=== PATIENT | female | born 1985 | race Caucasian/White ===

== ENCOUNTER 2022-12-20 13:39 | Emergency (ER) | payer MEDICAID, SELFPAY ==
[2022-12-20 14:01] VITALS: BP 130/88; PULSE 83; TEMP 36.3; O2SAT 97; BMI 28.3
--- NOTE | 2022-12-20 14:37 | ED.GENADULT ---
HPI - General Adult General Time Seen by Provider: 14:37 Date Seen: 12/20/22 Chief complaint: Sore Throat Stated complaint: Ear Nose Throat pain, lots of fatigue Time Seen by Provider: 12/20/22 13:56 Source: patient Mode of arrival: ambulatory Limitations: no limitations History of Present Illness HPI narrative: Patient is a 37-year-old female who has been diagnosed some type of autoimmune disease although she does not know the exact name. She has been seen by ENT doctor and was to follow up with Rheumatology, which she has missed a couple of appointments. But has 1 scheduled within the next week. She has had some fatigue when she drives she feels like she wants to fall asleep, she has a sore throat and she feels her eyelids are puffy as well. No difficulty swallowing, no rigors chills, she has had an illness feeling over the last few months. She has been quite upset by all this, does not feel at risk to herself however at this time. She was relieved when I mentioned I would prescribe her antibiotics and steroid medication Related Data Home Medications Medication Instructions Recorded Confirmed ibuprofen 200 mg tablet (Addaprin) 200 mg PO Q4-6H PRN 12/20/22 12/20/22 Previous Rx's Medication Instructions Recorded amoxicillin 500 mg tablet 500 mg PO TID 10 days #30 tabs 12/20/22 prednisone 20 mg tablet 20 mg PO BID #10 tabs 12/20/22 Allergies Allergy/AdvReac Type Severity Reaction Status Date / Time No Known Drug Allergies Allergy Verified 09/05/22 17:10 Review of Systems Status of ROS: Reports: 6 or more systems reviewed and unremarkable except as noted in History and below [facility] Social History Smoking Status: Current every day smoker Do you use any of these nicotine containing products: None Second hand tobacco smoke exposure: No How often do you have a drink containing alcohol: monthly or less How many standard drinks containing alcohol do you have on a typical day: 1 or 2 How often do you have six or more drinks on one occasion: Never AUDIT-C Alcohol total score: 1 Non-prescribed substance use: denies use Exam Narrative: Exam Narrative: Vital signs unremarkable afebrile O2 sat 97% on room air HEENT is unremarkable other than mildly reddened throat no abscess is noted no swelling unilaterally Neck is supple Pulse regular Neurologic nonfocal good peripheral perfusion noted Const: Vital Signs, click to edit/add: Vital Signs - 24 hr 12/20/22 14:01 Temperature 97.4 F L Pulse Rate [Right Pulse Oximeter] 83 Blood Pressure [Ri ght Upper Arm] 130/88 Pulse Oximetry 97 Oxygen Delivery Me thod Room Air Course Vital Signs Vital signs: Initial Vital Signs Temperature 97.4 F L 12/20/22 14:01 Temperature Source Temporal Artery Scan 12/20/22 14:01 Pulse Rate 83 12/20/22 14:01 Pulse Rhythm 12/20/22 14:01 Blood Pressure 130/88 12/20/22 14:01 Blood Pressure Mean 102 12/20/22 14:01 Blood Pressure Position Sitting 12/20/22 14:01 Pulse Oximetry 97 12/20/22 14:01 Oxygen Delivery Method 12/20/22 14:01 Vital Signs Temperature 97.4 F L 12/20/22 14:01 Pulse Rate 83 12/20/22 14:01 Blood Pressure 130/88 12/20/22 14:01 Pulse Oximetry 97 12/20/22 14:01 Oxygen Delivery Method 12/20/22 14:01 Temperature 97.4 F L 12/20/22 14:01 Pulse Rate 83 12/20/22 14:01 Blood Pressure 130/88 12/20/22 14:01 Pulse Oximetry 97 12/20/22 14:01 Oxygen Delivery Method 12/20/22 14:01 Medical Decision Making MDM Narrative Medical decision making narrative: Patient is a 37 year white female with a history of autoimmune type disease, scheduled to see Rheumatology next week. At this point she has got a sore throat and some swelling feeling of her eyelids and throat. Will check strep, COVID/influenza/RSV. Will check a CBC and a Chem profile. Will call with results. Will give her prednisone 50 mg now and start 20 b.i.d. for 4 days starting tomorrow, amoxicillin 500 now and 500 t.i.d. for 10 days. She does have what appears to be some inflamed pharynx and I think she would benefit from antibiotic. She will discuss with her significant other and her physician her ongoing medical needs and care. She can return to ED as needed. Lab Data Labs: Lab Results 12/20/22 12/20/2212/20/23 Range/Units 14:28 14:28 14:45 WBC 11.48 H (4.50-11.00) K/uL RBC 4.12 (4.00-5.20) m/uL Hgb 11.9 L (12.0-16.0) gm/dL Hct 36.7 (33.0-51.0) % MCV 89 (80-100) fL MCH 29 (26-34) pg MCHC 32 (32-36) gm/dL RDW Coeff of Amy 13.7 (11.5-15.5) % Plt Count 296 (140-440) K/uL Neut % (Auto) 65.2 (42.0-72.0) % Lymph % (Auto) 21.3 (20-44) % [place]air % (Auto) 5.3 (0.0-11.0) % Eos % (Auto) 7.7 H (0.0-7.0) % Baso % (Auto) 0.3 (0.0-3.0) % Neut # (Auto) 7.50 H (1.7-7.0) K/uL Lymph # (Auto) 2.40 (0.90-2.90) K/uL [place] # (Auto) 0.60 (0.00-0.90) K/UL Eos # (Auto) 0.90 H (0.00-0.50) K/uL Baso # (Auto) 0.00 (0.00-0.30) K/uL Sodium (135-149) mmol/L Potassium (3.6-5.1) mmol/L Chloride (96-114) mmol/L Carbon Dioxide (20-32) mmol/L BUN (5-24) mg/dL Creatinine (0.5-1.5) mg/dL Estimated Creat Clear Estimated GFR ml/min Glucose (60-115) mg/dL Calcium (8.4-10.6) mg/dL SARS-CoV-2 (PCR) Negative SARS-CoV-2 (Negative) Influenza Type A (PCR) Negative PCR FLU A (Negative) Influenza Type B (PCR) Negative PCR FLU B (Negative) RSV (PCR) Negative PCR RSV (Negative) Group A Strep DNA DETECTED A (Not Detectd) 12/20/22 Range/Units 14:45 WBC (4.50-11.00) K/uL RBC (4.00-5.20) m/uL Hgb (12.0-16.0) gm/dL Hct (33.0-51.0) % MCV (80-100) fL MCH (26-34) pg MCHC (32-36) gm/dL RDW Coeff of Amy (11.5-15.5) % Plt Count (140-440) K/uL Neut % (Auto) (42.0-72.0) % Lymph % (Auto) (20-44) % St. Clair % (Auto) (0.0-11.0) % Eos % (Auto) (0.0-7.0) % Baso % (Auto) (0.0-3.0) % Neut # (Auto) (1.7-7.0) K/uL Lymph # (Auto) (0.90-2.90) K/uL St. Clair # (Auto) (0.00-0.90) K/UL Eos # (Auto) (0.00-0.50) K/uL Baso # (Auto) (0.00-0.30) K/uL Sodium 142 (135-149) mmol/L Potassium 4.4 (3.6-5.1) mmol/L Chloride 107 (96-114) mmol/L Carbon Dioxide 29 (20-32) mmol/L BUN 15 (5-24) mg/dL Creatinine 0.7 (0.5-1.5) mg/dL Estimated Creat Clear 79.81 Estimated GFR 115 ml/min Glucose 128 H (60-115) mg/dL Calcium 8.9 (8.4-10.6) mg/dL SARS-CoV-2 (PCR) (Negative) Influenza Type A (PCR) (Negative) Influenza Type B (PCR) (Negative) RSV (PCR) (Negative) Group A Strep DNA (Not Detectd) Discharge Plan Discharge Clinical Impression: Pharyngitis Patient Disposition: Home w/ Parent or Adult Condition: Stable Additional Instructions: Rest, light activity, Tylenol amoxicillin and prednisone for the sore throat. Will call back with the results of your test today. Follow-up with rheumatology as planned. Update your regular doctor the next couple of days. Rest light activity, have somebody drive you if your feeling fatigued. Activity Level: Light activity Discharge Diet: Regular Prescriptions: New prednisone 20 mg tablet 20 mg PO BID Qty: 10 0RF amoxicillin 500 mg tablet 500 mg PO TID 10 Days Qty: 30 0RF No Action ibuprofen [Addaprin] 200 mg tablet 200 mg PO Q4-6H PRN Follow Up/Referrals: Provider,Not a Local [Primary Care Provider] - Stand Alone Forms: [employer] Info Instructions Discharge Comment: Pt took her abx and prednisone before leaving to picking up prescriptions.
[2022-12-20 14:51] LABS: Basophils Percent Auto 0.3 % (0.0-3.0); Eosinophils Percent Auto 7.7 % (0.0-7.0); Hematocrit 36.7 % (33.0-51.0); Hemoglobin* 11.9 gm/dL (12.0-16.0); Immature Granulocytes Pct Auto 0.2 %; Lymphocytes Percent Auto 21.3 % (20-44); Mean Corpuscular HGB Conc 32 gm/dL (32-36); Mean Corpuscular Hemoglobin 29 pg (26-34); Mean Corpuscular Volume 89 fL (80-100); Monocytes Percent Auto 5.3 % (0.0-11.0); Neutrophils Percent Auto 65.2 % (42.0-72.0); Platelet Count* 296 K/uL (140-440); RDW Coefficient of Variation % 13.7 % (11.5-15.5); Red Blood Count 4.12 m/uL (4.00-5.20); White Blood Count* 11.48 K/uL (4.50-11.00)
[2022-12-20 14:59] LABS: Slide Review Reflex No
[2022-12-20 15:07] LABS: Chloride* 107 mmol/L (96-114); Sodium* 142 mmol/L (135-149)
[2022-12-20 15:10] LABS: Blood Urea Nitrogen* 15 mg/dL (5-24); Carbon Dioxide* 29 mmol/L (20-32); Creatinine* 0.7 mg/dL (0.5-1.5); Est. Creatinine Clearance* 79.81; Estimated Glomerular Filt Rate 115 ml/min; Glucose* 128 mg/dL (60-115)
[2022-12-20 15:11] LABS: Calcium* 8.9 mg/dL (8.4-10.6)
[2022-12-20 15:19] LABS: Potassium* 4.4 mmol/L (3.6-5.1)
[2022-12-20 15:35] LABS: PCR FLU A Negative PCR FLU A (Negative); PCR FLU B Negative PCR FLU B (Negative); PCR RSV Negative PCR RSV (Negative)
[2022-12-20 15:36] LABS: SARS PCR* Negative SARS-CoV-2 (Negative)
[2022-12-20 15:53] LABS: Strep A DNA Probe* DETECTED (Not Detectd)
--- NOTE | 2022-12-20 16:08 | ED.NURSE ---
Called pt with results of her bloodwork and her positive Strep test. Pt has picked up all her prescriptions and will return if she is not feeling better after taking her course of antibiotics.
== END 2022-12-20 14:54 | disposition home or self-care (01) ==
PROVIDERS: Emergency Provider Family Medicine
DX: J02.9 Acute pharyngitis, unspecified (principal)
CPT/HCPCS: 36415; 80048; 85025; 87502; 87634; 87635; 87651; 99282; 99283; 99284

== ENCOUNTER 2024-05-17 10:41 | Emergency (ER) | payer MEDICAID, SELFPAY ==
[2024-05-17 10:44] VITALS: BP 130/90; PULSE 64; RESP 16; TEMP 36.4; O2SAT 97; BMI 52.2
--- NOTE | 2024-05-17 11:07 | ED.ANIMALBIT ---
HPI - Animal Bite General Chief Complaint: Animal Bite Stated Complaint: dog bite - 0600 Time Seen by Provider: 05/17/24 10:48 History of Present Illness HPI narrative: This 39-year-old female comes in with injury to her left middle finger from her dog who bit her this morning at about 6:00 a.m., 5 hours prior to arrival. She comes in wanting to have reassurance that there is not an infection happening. She is uncertain of her tetanus status. Related Data Home Medications ?Medication ?Instructions ?Recorded ?Confirmed ibuprofen 200 mg tablet (Addaprin) 200 mg PO Q4-6H PRN 12/20/22 12/20/22 avacopan 10 mg capsule (Tavneos) mg PO 05/17/24 folic acid 1 mg tablet 1 mg PO DAILY 05/17/24 05/17/24 methotrexate sodium 2.5 mg tablet 15 mg PO 05/17/24 Previous Rx's ?Medication ?Instructions ?Recorded amoxicillin 500 mg tablet 500 mg PO TID 10 days #30 tabs 12/20/22 prednisone 20 mg tablet 20 mg PO BID #10 tabs 12/20/22 Allergies Allergy/AdvReac Type Severity Reaction Status Date / Time naloxone Allergy Severe tonuge Verified 05/17/24 10:53 [From [facility] Naloxone] swelling Review of Systems Status of ROS: Reports: 10 or more systems reviewed and unremarkable except as noted in History and below Narrative: Constitutional: No fevers, no weight gain or loss. Eyes: No discharge. No vision changes. HENT: No congestion, no sore throat, no ear pain. Cardiovascular: No chest pain, no palpitations. Respiratory: No shortness of breath, no wheezes, no cough. Gastrointestinal: No abdominal pain, no vomiting, no diarrhea. Genitourinary: No dysuria, no hematuria. Musculoskeletal: Normal range of motion. Skin: No rashes, no pruritis. Neurological: No dizziness, weakness, sensory change, speech change. Endo/Heme/Allergies: No bruising or bleeding. No polydipsia. Pysch: no suicidality, no anxiety, no insomnia. All other systems reviewed and are negative. [facility] Social History Smoking Status: Current every day smoker Do you use any of these nicotine containing products: None Second hand tobacco smoke exposure: No How often do you have a drink containing alcohol: monthly or less How many standard drinks containing alcohol do you have on a typical day: 1 or 2 How often do you have six or more drinks on one occasion: Never AUDIT-C Alcohol total score: 1 Non-prescribed substance use: denies use Exam Narrative: Exam Narrative: Constitutional: Well-developed, well-nourished, no acute distress. HEENT: Normocephalic, atraumatic. Neck: Normal range of motion. Nontender. Supple. Heart: Intact distal pulses. Lungs: No chest discomfort. No wheezes, rhonchi, or rales. Abdomen: Nontender. Back: Normal range of motion. Extremities: Normal range of motion. For small superficial puncture type wounds to the left middle finger. Range of motion is intact. Mild swelling but no sign of drainage, bleeding, or erythema. Skin: Intact. No rash. Warm. No erythema or pallor. Neurologic: No altered sensation. No weakness. Alert and oriented. Psychiatric: No suicidality. No anxiety or depression. No insomnia. Nursing notes and vitals signs are reviewed. Const: Vital Signs, click to edit/add: Vital Signs - 24 hr 05/17/24 10:44 Temperature 97.5 F L Pulse Rate [Pulse Oximeter] 64 Respiratory Rate 16 Blood Pressure [Ri ght Upper Arm] 130/90 H Pulse Oximetry 97 Oxygen Delivery Me thod Room Air Course Vital Signs Vital signs: Initial Vital Signs Temperature 97.5 F L 05/17/24 10:44 Temperature Source Temporal Artery Scan 05/17/24 10:44 Pulse Rate 64 05/17/24 10:44 Respiratory Rate 16 05/17/24 10:44 Blood Pressure 130/90 H 05/17/24 10:44 Blood Pressure Mean 103 05/17/24 10:44 Blood Pressure Position Sitting 05/17/24 10:44 Pulse Oximetry 97 05/17/24 10:44 Oxygen Delivery Method Room Air 05/17/24 10:44 Vital Signs Temperature 97.5 F L 05/17/24 10:44 Pulse Rate 64 05/17/24 10:44 Respiratory Rate 16 05/17/24 10:44 Blood Pressure 130/90 H 05/17/24 10:44 Pulse Oximetry 97 05/17/24 10:44 Oxygen Delivery Method Room Air 05/17/24 10:44 Temperature 97.5 F L 05/17/24 10:44 Pulse Rate 64 05/17/24 10:44 Respiratory Rate 16 05/17/24 10:44 Blood Pressure 130/90 H 05/17/24 10:44 Pulse Oximetry 97 05/17/24 10:44 Oxygen Delivery Method Room Air 05/17/24 10:44 MDM - Animal Bite MDM Narrative Medical decision making narrative: This patient has superficial wounds to her left middle finger that do not need repair. Additionally the injury is not 1 that would require antibiotic treatment at this time. The patient states that it was her dog that bit her and the dog's vaccinations are up-to-date. Her tetanus vaccination is not up-to-date so she did receive an updated vaccination today. I did describe signs and symptoms that would be more suspicious for an infection related to this dog bite. She should return if worsening symptoms happen. Discharge Plan Discharge Clinical Impression: Dog bite Patient Disposition: Home, Self-Care Condition: Stable Additional Instructions: Use [id number] medicines as needed and directed. Follow up with MD return if worsening. Prescriptions: No Action ibuprofen [Addaprin] 200 mg tablet 200 mg PO Q4-6H PRN prednisone 20 mg tablet 20 mg PO BID Qty: 10 0RF amoxicillin 500 mg tablet 500 mg PO TID 10 Days Qty: 30 0RF methotrexate sodium 2.5 mg tablet 15 mg PO folic acid 1 mg tablet 1 mg PO DAILY Tavneos 10 mg capsule PO Follow Up/Referrals: Provider,Not a Local [Primary Care Provider] - Stand Alone Forms: [employer] Info Instructions
[2024-05-17] MEDS: TETANUS/DIPHTH/PERTUSSIS 0.5 ML SYRINGE IM (11:11)
--- OUTSIDE RECORDS SUMMARY | 2024-05-17 11:19 | XMS_ITS | Patient Health Record ---
Author Organization [email or web address] [facility] Address [address] [place] [address] Care Team Providers Care Radiological Defense Officer Name Role Phone Nick Garcia Primary Care Provider Allergies No Known Allergies Results Component Value Reference Range Notes Alkaline Phosphatase Reviewed date:05/08/2024 03:35:34 PM Interpretation:Stable Performing Lab: Notes/Report: Testing performed at [facility], [address] [place] [address], Supervisor Costuming Kedar Merida MD, CLIA# [id number] ALT Reviewed date:05/08/2024 03:35:34 PM Interpretation:Stable Performing Lab: Notes/Report: Testing performed at [email or web address], [address] [place] [address], Supervisor Costuming Kedar Merida MD, CLIA# [id number] AST Reviewed date:05/08/2024 03:35:34 PM Interpretation:Stable Performing Lab: Notes/Report: Testing performed at [facility], [address] [place] [address], Supervisor Costuming Kedar Merida MD, CLIA# [id number] Creatinine Reviewed date:05/08/2024 03:35:34 PM Interpretation:Stable Performing Lab: Notes/Report: Testing performed at [facility], [address] [place] [address], Supervisor Costuming Kedar Merida MD, CLIA# [id number] CBC Reviewed date:05/08/2024 03:35:34 PM Interpretation:Stable Performing Lab: Notes/Report: Testing performed at [email or web address], [address] [place] [address], Supervisor Costuming Kedar Merida MD, CLIA# [id number] Sed Rate Reviewed date:05/08/2024 03:35:34 PM Interpretation:Stable Performing Lab: Notes/Report: Testing performed at [facility], [address] [place] [address], Supervisor Costuming Kedar Merida MD, CLIA# [id number] C Reactive Protein Reviewed date:05/08/2024 03:21:16 PM Interpretation: Performing Lab: Notes/Report: Testing performed at [facility], [address] [place] [address], Supervisor Costuming Kedar Merida MD, CLIA# [id number] C Reactive Protein Reviewed date:01/25/2024 12:10:06 PM Interpretation: Performing Lab: Notes/Report: Testing performed at [facility], [address] [place] [address], Supervisor Costuming Kedar Merida MD, CLIA# [id number] Sed Rate Reviewed date:02/08/2024 02:50:27 PM Interpretation:UTRYL High Performing Lab: Notes/Report: Testing performed at [facility], [address] [place] [address], Supervisor Costuming Kedar Merida MD, CLIA# [id number] CBC Reviewed date:02/08/2024 02:50:27 PM Interpretation:UTYRL High Performing Lab: Notes/Report: Testing performed at [facility], [address] [place] [address], Supervisor Costuming Kedar Merida MD, CLIA# [id number] Creatinine Reviewed date:02/08/2024 02:50:27 PM Interpretation:UTRYL High Performing Lab: Notes/Report: Testing performed at [facility], [address] [place] [address], Supervisor Costuming Kedar Merida MD, CLIA# [id number] AST Reviewed date:02/08/2024 02:50:27 PM Interpretation:UTRYL High Performing Lab: Notes/Report: Testing performed at [facility], [address] [place] [address], Supervisor Costuming Kedar Merida MD, CLIA# [id number] ALT Reviewed date:02/08/2024 02:50:27 PM Interpretation:YAMILETH Performing Lab: Notes/Report: Testing performed at [facility], [address] [place] [address], Supervisor Costuming Kedar Merida MD, CLIA# [id number] Alkaline Phosphatase Reviewed date:02/08/2024 02:50:27 PM Interpretation:YAMILETH High Performing Lab: Notes/Report: Testing performed at [facility], [address] [place] [address], Supervisor Costuming Kedar Merida MD, CLIA# [id number] Reason For Referral No Information Medications Medication SIG (Take, Route, Fr equency, Duration) Notes Start Date End Date Status Ibuprofen 200 MG 4 tablets with food or milk as needed Orally Three- five times a day Active Folic Acid 1 MG 1 tablet Orally Once a day Active Methotrexate 2.5 MG take 6 tablets once weekly Orally 04/04/2023 Active Tavneos 10 MG Take 3 capsules (30 mg) by mouth twice daily with food. 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 Problem History of cocaine abuse (385707061593670) History of cocaine abuse (F14.11) Active confirmed Vital Signs Heart Rate 88 /min 01/19/2024 NO Blood pressure diastolic 100 mm Hg 05/03/2024 Height 58 in 05/03/2024 Blood pressure systolic 118 mm Hg 05/03/2024 Weight 220 lbs 01/19/2024 NO BMI 45.98 kg/m2 01/19/2024 NO Encounters Encounter Location Date Provider Diagnosis [address] [place] [id number] 05/19/[address] [place] [address] 05/19/[address] [place] [address] 06/06/2023 [facility] [address] [place] [address] 06/22/2023 [facility] [address] [place] [address] 08/02/2023 Nick Garcia Vasculitis I77.[address] [place] [address] 08/29/2023 [facility] [address] [address] 08/31/2023 [facility] [address] [place] [address] 10/27/2023 [facility] [address] [place] [address] 01/24/2024 [facility] [address] [place] [address] 01/27/2024 [facility] [address] [place] [address] 04/11/2024 [facility] [place] [address] [place] [address] 05/19/2023 Nick Garcia Vasculitis I77.6 and Teresa's granulomatosis M31.30 [facility] [place] [address] [place] [address] 01/19/2024 Nick Garcia Teresa's granulomat osis M31.30 and buttermaker use of drug Z79.899 [facility] [place] [address] [place] [address] 05/03/2024 Nick Garcia Vasculitis I77.6 ; Teresa's granulomatosis M31.30 and jail use of drug Z79.899 Assessments Encounter Date Diagnosis (ICD Code) Assessment Notes Treat ment Notes Treatment Clinical Notes 05/19/2023 Vasculitis (ICD-10 - I77.6) 08/02/2023 Vasculitis (ICD-10 - I77.6) 05/03/2024 Vasculitis (ICD-10 - I77.6) 01/19/2024 Teresa's granulomatosis (ICD-10 - M31.30) 05/03/2024 Teresa's granulomatosis (ICD-10 - M31.30) 01/19/2024 buttermaker use of john g (ICD-10 - Z79.899) 05/19/2023 Teresa's granulomatosis (ICD-10 - M31.30) 05/03/2024 jail use of john g (ICD-10 - Z79.899) Plan Of Treatment No Information Insurance Providers Payer Name Payer Address Payer Phone Subscriber Number Group Number Insured Name Patient Relationship to Insured Coverage Start Date Coverage End Date [facility] [address] [place], [place] [id number] Karyna Parisi Self - patient is the insured 3
--- OUTSIDE RECORDS SUMMARY | 2024-05-17 11:19 | XMS_ITS | Referral Summary ---
Author Organization [facility] Address [address] [place] [address] Care Team Providers Care Handle Rounder Operator Name Role Phone No Ref-Primary, Physician Primary Care Provider Palmira Gay MD Unavailable [phone] Palmira Gay MD Unavailable [phone] Camila Treviño MD Unavailable [phone] Allergies No known active allergies Medications Medication Sig Dispensed Refills Start Date End Date Status Avacopan (TAVNEOS) 10 MG CAPS Take 1 capsule by mouth 2 times daily Active predniSONE (DELTASONE) 10 MG tablet Take 20 mg by mouth daily 04/04/2023 Active methotrexate 2.5 MG tablet Take 15 mg by mouth every 7 days On Tuesdays04/04/2023 Active hydrOXYzine (ATARAX) 25 MG tabletIndications:An xiety Take 1 tablet (25 mg) by mouth every 6 hours as needed for anxiety 20 tablet 05/24/2023 Active cloNIDine (CATAPRES-TTS2) 0.2 MG/24HR WK patchIndications:Sev ere opioid use disorder (H) Place 1 patch onto the skin once a week 1 patch 05/29/2023 Active Active Problems Problem Noted Date Diagnosed Date Vasculitis (H24) 07/29/2023 Cocaine abuse 07/29/2023 Nasal septal perforation 07/29/2023 Disorder of palate 07/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 Opioid use disorder 07/29/2023 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 Intractable pain 05/19/2023 Dysphagia, unspecified type 05/19/2023 Lesion of soft palate 05/19/2023 Granulomatosis with polyangiitis 05/19/2023 05/19/2023 History of cocaine abuse 05/19/2023 023 ANCA-positive vasculitis 12/31/2022 023 Anxiety 09/08/2018 05/19/2023 Depression 09/08/2018 05/19/2023 Social History Tobacco Use Types Packs/Day Years Used Date Smoking Tobacco: Every Day Cigarettes Tobacco Cessation:Ready to Q uit: Not Asked; Counseling Given: Not Answered Adolescent Education Answer Date Record ed Getting School Help Needed Not on file 09/14 Sex and Gender Information Value Date Recorded Sex Assigned at Not on file Gender Identity Not on file Sexual Orientation Not on file Last Filed Vital Signs Vital Sign Reading Time Taken Comments Blood Pressure 140/89 12/19/2023 2:59 PM MEDICAL SPECIALIST Pulse 111 12/19/2023 2:59 PM MEDICAL SPECIALIST Temperature 36.6 ??C (97.8 ??F) 07/30/2023 12:48 AM C DT Respiratory Rate 18 07/29/2023 8:51 PM CDT Oxygen Saturation 96% 07/30/2023 12:48 AM CDT Inhaled Oxygen Concentration - - Weight 99.8 kg (220 lb) 07/28/2023 8:32 PM CDT Height 147.3 cm (4' 10) 07/28/2023 8:32 PM CDT Body Mass Index 45.98 07/28/2023 8:32 PM CDT Plan of Treatment Upcoming Encounters Date Type Department Care Team (Late st Contact Info) Description 06/20/2024 PRE VISIT [facility] [address] [address] Sravan Smalls MD [address] [place] [id number] Previsit 06/20/2024 2:00 PM CDT Office Visit [facility] [address] [phone] Sravan Smalls MD [address] [place] [address] [phone] Procedures Procedure Name Priority Date/Time Associated Diagnosis Comments BASIC METABOLIC PANEL STAT 07/29/2023 7:28 AM CDT HIV ANTIGEN ANTIBODY COMBO STAT 05/20/2023 7:09 AM CDT HEPATITIS C ANTIBODY STAT 05/20/2023 7:09 AM CDT from Last 3 Months or Most Recently Relevant to Health Maintenance Results * Basic metabolic panel (07/29/2023 7:28 AM CDT) Sodium 139 136 - 145 mmol/L 07/29/2023 8:06 AM CDT [facility] Potassium 4.2 3.4 - 5.3 mmol/L 07/29/2023 8:06 AM CDT [facility] Chloride 103 98 - 107 mmol/L 07/29/2023 8:06 AM CDT [facility] Carbon Dioxide (CO2) 24 22 - 29 mmol/L 07/29/2023 8:06 AM CDT [facility] Anion Gap 12 7 - 15 mmol/L 07/29/2023 8:06 AM CDT [facility] Urea Nitrogen 16.8 6.0 - 20.0 mg/dL 07/29/2023 8:06 AM CDT [facility] Creatinine 0.88 0.51 - 0.95 mg/dL 07/29/2023 8:06 AM CDT [facility] Calcium 8.6 8.6 - 10.0 mg/dL 07/29/2023 8:06 AM CDT [facility] Glucose 95 70 - 99 mg/dL 07/29/2023 8:06 AM CDT [facility] GFR Estimate 86 >60 mL/min/1.7 3m2 07/29/2023 8:06 AM CDT [facility] Blood STRUCTURE OF LEFT HAND / Unknown Venipuncture / Unknown 07/29/2023 7:28 AM CDT 07/29/2023 7:39 AM CDT Amanda Mcfarland DO LAB - BLOOD ORDERABL ES [facility] [place] [facility] [address] [facility], [address] [place] [id number], [facility] [phone] * HIV Antigen Antibody Combo (05/20/2023 7:09 AM CDT) HIV Antigen Antibody Combo Nonreactive Nonreactive 05/20/2023 1:09 PM CDT [facility] DO Comment:HIV-1 p24 Ag & HIV-1 /HIV-2 Ab Not Detected Blood STRUCTURE OF RIGHT HAND / Unknown Venipuncture / Unknown 05/20/2023 7:09 AM CDT 05/20/2023 7:17 AM CDT Marcelo Grove MD LAB - BLOOD ORDJaney MASC[facility]RO [facility] [address] [facility], Room [address] [phone] * Hepatitis C antibody (05/20/2023 7:09 AM CDT) Hepatitis C Antibody Nonreactive Nonreactive 05/20/2023 1:09 PM CDT SPECIALTY CORE/PROT/EN DO Blood STRUCTURE OF RIGHT HAND / Unknown Venipuncture / Unknown 05/20/2023 7:09 AM CDT 05/20/2023 7:17 AM CDT Narrative [facility] - 05/20/2023 1:09 PM CDT Assay performance characteristics have not been established for newborns, infants, and children. Marcelo Grove MD LAB - BLOOD ROD [facility]Endo [address] [facility], [address] [place] [address] from Last 3 Months or Most Recently Relevant to Health Maintenance Advance Directives For more information, please contact: [phone] * Full Code (Latest Code Status on File) Date Activated Date Inactivated Comments 07/29/2023 3:57 AM 07/30/2023 5:10 PM All basic and advanced life-sustaining interventions are performed as appropriate Question Answer Comments Code status determined by: Discussion with patie nt/ legal decision maker * Full Code Date Activated Date Inactivated Comments 05/19/2023 7:00 PM 05/24/2023 6:14 PM All basic an d advanced life-sustaining interventions are performed as appropriate Question Answer Comments Code status determined by: Discussion with patie nt/ legal decision maker Care Teams Handle Rounder Operator Relationship Specialty Start Date End Date No Ref-Primary, Physician PCP - General 05/19/23 Palmira Gay MD [address] [facility] [address] [place] [address] Otolaryngology 05/26/23 Palmira Gay MD [address] [facility] [address] [place] [address] Otolaryngology 06/24/23 Camila Treviño MD [facility] [address], [address] [place] [address] Assigned Surgical Provider 12/22/23
--- OUTSIDE RECORDS SUMMARY | 2024-05-17 11:19 | XMS_ITS | Clinical Summary ---
Author Organization [facility] Address [place], [place] [address] Care Team Providers Care Office Specialist Name Role Phone [employer] [facility] Primary Care Provider Allergies No known active allergies Medications Medication Sig Dispensed Refills Start Date End Date Status mupirocin (BACTROBAN OINTMENT) ointmentIndications:N dana septal perforation,Nasal congestion,Chronic pansinusitis,ANCA-pos itive vasculitis (HC) Put a pea sized amount in your sinus rinse kit and irrigate 2-3 times daily 15 g 3 11/04/2022 Active traZODone (DESYREL) 50 mg tablet Take 50 mg by mouth. Active sertraline (ZOLOFT) 50 mg tablet Take 50 mg by mouth once daily. 09/06/2023 Active prazosin (MINIPRESS) 1 mg capsule 08/09/2023 Active hydrOXYzine HCL (ATARAX) 25 mg tablet Take 25 mg by mouth. 05/24/2023 Active cloNIDine HCL (CATAPRES) 0.1 mg tablet 08/02/2023 Active methotrexate (RHEUMATREX) 2.5 mg tablet Take 15 mg by mouth. 04/04/2023 Active Active Problems Problem Noted Date Diagnosed Date Opioid use disorder 07/29/2023 Nasal septal perforation 07/29/2023 Cocaine substance abuse 07/29/2023 History of cocaine abuse 05/19/2023 Disorder of palate 05/19/2023 Dysphagia 05/19/2023 Granulomatosis with polyangiitis 12/31/2022 Polysubstance abuse 09/08/2018 Opiate withdrawal 09/08/2018 Depression 09/08/2018 Anxiety 09/08/2018 Tobacco use 09/08/2018 Immunizations Name Administration Dates Next Due COVID-19 vaccine (CASTT-Bio NTech 30mcg/0.3mL) 12YO+ PAZ-SUCROSE PF, MDV 02/28/2023 Influenza, IIV3 (Age 6-35 mos) 09/03/2009 Influenza, IIV3 (Age >=3 years) 08/09/2012,08/11 Influenza, IIV4 02/28/2023 Influenza, IIV4 (=>6mos) MDV 07/30/2015 Pneumococcal Conj 20-valent (Prevnar 20) 023 Tdap 03/24/2011 Zoster (Shingrix-RZV, recombinant) 02/28/2023 Family History Medical History Relation Name Comments Good Health Father Cancer-prostate Maternal Grandfather Diabetes Mother Relation Name Status Comments Father Maternal Grandfather Mother Social History Tobacco Use Types Packs/Day Years Used Date Smoking Tobacco: Every Day Cigarettes 1 16 Smokeless Tobacco: Never Tobacco Cessation:Ready to Q uit: No; Counseling Given: Yes Alcohol Use Standard Drinks/Week Comments Yes 0 (1 standard drink = 0.6 oz pur e alcohol) once a year PHQ-2 Answer Date Recorded PHQ-2 Score 4 01/28/2019 Social Connections Answer Date Recorded Frequency of Communication with Friends and Fami ly Not on file 10/11/2023 Financial Resource Strain Answer Date R ecorded Difficulty of Paying Living Expenses 2 10/08/2022 Difficulty of Paying Living Expenses 1 10/08/2022 Food Insecurity Answer Date Recorded Worried About Running Out of Food in the Last Ye ar 1 10/08/2022 Transportation Needs Answer Date Record ed Lack of Transportation (Medical) 1 10/08/2022 Housing Stability Answer Date Recorded Unable to Pay for Housing in the Last Year 1 10/08/2022 Sex and Gender Information Value Date Recorded Sex Assigned at Not on file Gender Identity Not on file Sexual Orientation Not on file Obstetrics History Para Term AB IAB SAB Ectopic Multiple Livin g Live Births 1 0 0 0 0 0 0 0 0 0 Date Outcome GA Total Labor Labor/2nd/3rd Weight Sex Type Anes PTL Amy A1 A5 Name Clin Comments:System Genera suha. Please review and update details. Last Filed Vital Signs Vital Sign Reading Time Taken Comments Blood Pressure 116/83 12/31/2022 11:32 AM AVIATION TECHNICIAN AIRCRAFT Pulse 82 12/31/2022 11:32 AM AVIATION TECHNICIAN AIRCRAFT Temperature 36 ??C (96.8 ??F) 12/30/2022 2:16 PM AVIATION TECHNICIAN AIRCRAFT Respiratory Rate 21 12/30/2022 2:16 PM AVIATION TECHNICIAN AIRCRAFT Oxygen Saturation 99% 12/31/2022 11:32 AM AVIATION TECHNICIAN AIRCRAFT Inhaled Oxygen Concentration - - Weight 83.9 kg (185 lb) 12/31/2022 11:32 AM AVIATION TECHNICIAN AIRCRAFT Height 147.3 cm (4' 10) 12/30/2022 2:16 PM AVIATION TECHNICIAN AIRCRAFT Body Mass Index 38.67 12/30/2022 2:16 PM AVIATION TECHNICIAN AIRCRAFT Plan of Treatment Health Maintenance Due Date Last Done Comments HIV for age 15-65 2001 Hepatitis C screening for ag e 18-79 2004 Pap test for age 21-65 2007 BMI (ht and wt on same day) for age 18+ 03/03/2017 03/03/2016 Depression screening for age 12+ 09/11/2019 09/11/20 18, 03/03/2016 Tetanus booster 03/24/2021 03/24/2011 COVID-19 vaccine series (2 - Pfizer risk series) 03/21/2023 02/28/2023 Influenza for age 9-49 07/29/2024 3, 07/30/2015, 08/09/2012, Additional history exists Tdap Completed 03/24/2011 Pneumococcal series for age 6-64 Completed 02/29/20 23 Advance Directives * Full Code (Latest Code Status on File) Date Activated Date Inactivated Comments 09/11/2018 5:56 PM 09/29/2018 3:42 PM * Full Code Date Activated Date Inactivated Comments 09/08/2018 2:39 PM 09/11/2018 5:45 PM * Full Code Date Activated Date Inactivated Comments 07/19/2009 1:20 AM 07/20/2009 4:23 PM * Full Code Date Activated Date Inactivated Comments 07/18/2009 7:47 AM 07/19/2009 1:14 AM * Full Code Date Activated Date Inactivated Comments 03/31/2009 6:33 PM 04/01/2009 12:13 AM Care Teams Office Specialist Relationship Specialty Start Date End Date [address] [address] PCP - General 11/28/17
--- OUTSIDE RECORDS SUMMARY | 2024-05-17 11:19 | XMS_ITS | Encounter Summary ---
Author Organization [facility] Address [address] [place] [address] Care Team Providers Care Hand Gluer And Slicer Name Role Phone No Ref-Primary, Physician Primary Care Provider Palmira Gay MD Unavailable [phone] Palmira Gay MD Unavailable [phone] Camila Treviño MD Unavailable [phone] Encounter Details Date Type Department Care Team (Late st Contact Info) Description 06/12/2023 MyC Medical Advice Initial Department [facility] Social History Tobacco Use Types Packs/Day Years Used Date Smoking Tobacco: Never Assessed Sex and Gender Information Value Date Recorded Sex Assigned at Not on file Gender Identity Not on file Sexual Orientation Not on file COVID-19 Exposure Response Date Recorded In the last 10 days, have yo u been in contact with someone who was confirmed or suspected to have Coronavirus/COVID-19? No / Unsure 05/19/2023 11:20 AM CDT documented as of this encounter Plan of Treatment Upcoming Encounters Date Type Department Care Team (Late st Contact Info) Description 06/20/2024 PRE VISIT [facility] [address] [phone] Sravan Smalls MD [address] [place] [phone] Previsit 06/20/2024 2:00 PM CDT Office Visit [facility] [address] [phone] Sravan Smalls MD [address] [place], [place] [phone] documented as of this encounter Visit Diagnoses Not on filedocumented in this encounter Care Teams Hand Gluer And Slicer Relationship Specialty Start Date End Date No Ref-Primary, Physician PCP - General 05/19/23 Palmira Gay MD [address] [place] [address] Otolaryngology 05/26/23 Palmira Gay MD [address] [address] Otolaryngology 06/24/23 Camila Treviño MD [facility] [address], [address] [place] [address] Assigned Surgical Provider 12/22/23 documented as of this encounter
--- OUTSIDE RECORDS SUMMARY | 2024-05-17 11:19 | XMS_ITS ---
Author Organization [facility] Address [address] [place] [address] Care Team Providers Care Cath Laboratory Technician Name Role Phone Unavailable Unavailable Unavailable Surgery Details Not on file Complications Check Surgery Details section. Procedure Estimated Blood Loss Check Surgery Details section. Procedure Findings Check Surgery Details section. Procedure Specimens Taken Check Surgery Details section.
--- OUTSIDE RECORDS SUMMARY | 2024-05-17 11:19 | XMS_ITS | Clinical Summary ---
Author Organization [facility] Address [address] [place] [address] Care Team Providers Care Lard Renderer Name Role Phone No Ref-Primary, Physician Primary Care Provider Palmira Gay MD Unavailable [phone] Palmira Gay MD Unavailable [phone] Camila Treviño MD Unavailable [phone] Allergies No known active allergies Medications [...] Comments Blood Pressure 140/89 12/19/2023 2:59 PM EDUCATIONAL TECHNOLOGY SPECIALIST Pulse 111 12/19/2023 2:59 PM EDUCATIONAL TECHNOLOGY SPECIALIST Temperature 36.6 ??C (97.8 ??F) 07/30/2023 [...] st Contact Info) Description 06/20/2024 PRE VISIT [facility] [address] [phone] Sravan Smalls MD [address] [place] [phone] Previsit 06/20/2024 2:00 PM CDT Office Visit [facility] [address] [phone] Sravan Smalls MD [address] [place] [address] [phone] Health Maintenance Due Date Last Done Comments ADVANCE CARE PLANNING 1986 ANNUAL REVIEW OF HM ORDERS 1986 NICOTINE/TOBACCO CESSATION COUNSELING Q 1 YR 1986 YEARLY PREVENTIVE VISIT 1986 HEPATITIS A IMMUNIZATION (1 of 2 - Risk 2-dose series) 2005 HEPATITIS B IMMUNIZATION (1 of 3 - 19+ 3-dose series) 2005 PAP 2007 DTAP/TDAP/TD IMMUNIZATION (2 - Td or Tdap) 03/24/2021 03/24/2011 COVID-19 Vaccine (2 - Pfizer risk series) 03/21/2023 02/28/2023 PHQ-2 (once per calendar year) 2023 INFLUENZA VACCINE (Season Ended) 2024 02/28/2023, 07/30/2015, 08/09/2012, Additional history exists GLUCOSE 07/29/2026 07/29/2023, 06/30, 05/24/2023, Additional history exists Pneumococcal Vaccine: Pediatrics (0 to 5 Years) and At-Risk Patients (6 to 64 Years) Completed 02/28/2023 HEPATITIS C SCREENING Completed 05/20/2023 HIV SCREENING Completed 05/20/2023 HPV IMMUNIZATION Aged Out No longer e ligible based on patient's age to complete this topic IPV IMMUNIZATION Aged Out No longer e ligible based on patient's age to complete this topic MENINGITIS IMMUNIZATION Aged Out No l onger eligible based on patient's age to complete this topic RSV MONOCLONAL ANTIBODY Aged Out No l onger eligible based on patient's age to complete this topic Procedures Procedure Name Priority Date/Time Associated Diagnosis [...] LAB - BLOOD ORDERABL ES [facility] [place] [facility] [address] [facility], [address] [address], [facility] [phone] * HIV Antigen Antibody Combo (05/20/2023 7:09 AM CDT) HIV Antigen Antibody Combo Nonreactive Nonreactive 05/20/2023 1:09 PM CDT [facility] C[facility]PROT/EN DO Comment:HIV-1 p24 Ag & HIV-1 /HIV-2 Ab Not Detected Blood STRUCTURE OF RIGHT HAND / Unknown Venipuncture / Unknown 05/20/2023 7:09 AM CDT 05/20/2023 7:17 AM CDT Marcelo Grove MD LAB - BLOOD ORDJaney MASCORRO [facility]Prot/Endo 500 [facility], [address] [phone] * Hepatitis C antibody (05/20/2023 7:09 AM CDT) Hepatitis C Antibody Nonreactive Nonreactive 05/20/2023 1:09 PM CDT [facility] DO Blood STRUCTURE OF RIGHT HAND / Unknown Venipuncture / Unknown 05/20/2023 7:09 AM CDT 05/20/2023 7:17 AM CDT Narrative [facility] - 05/20/2023 1:09 PM CDT Assay performance characteristics have not been established for newborns, infants, and children. Marcelo Grove MD LAB - BLOOD ORDJaney MASCORRO [facility]ENDO Special[facility] Core/Prot/Endo [address] [facility], [address] [phone] from Last 3 Months or Most Recently Relevant to Health Maintenance Advance Directives For more information, please contact: [phone] * Full Code (Latest Code Status on [...] Comments Code status determined by: Discussion with rachele nt/ legal decision maker Care Teams Lard Renderer Relationship Specialty Start Date End Date No Ref-Primary, Physician PCP - General 05/19/23 Palmira Gay MD [address] [place] [address] Otolaryngology 05/26/23 Palmira Gay MD [address] [place] [address] Otolaryngology 06/24/23 Camila Treviño MD [facility] [address], [address] [place] [address] Assigned Surgical Provider 12/22/23
--- OUTSIDE RECORDS SUMMARY | 2024-05-17 11:19 | XMS_ITS | Clinical Summary ---
Author Organization [facility] Address [address] [place] [address] Care Team Providers Care Stock Analyst Name Role Phone Elsewhere, Pcp Primary Care Provider Unavailabl e Source Comments Patient records contain information from all sites at [facility]. For routine questions regarding patient records, call [phone] during business hours, M-F 8:00 AM - 5:00 PM Central Time. Record requests for emergency care only can be directed to [phone] at any time.[facility] Allergies No known active allergies Medications Medication Sig Dispensed Refills Start Date End Date Status omeprazole (PriLOSEC) [address] capsule TAKE 1 CAPSULE BY MOUTH EVERY DAY 30 MINUTES BEFORE BREAKFAST 01/06/2023 Active methotrexate 2.5 mg tablet Take 15 mg by mouth once a week. 04/05/2023 Active predniSONE (DELTASONE) 10 mg tablet Take 10 mg by mouth 2 (two) times a day. 04/30/2023 Active avacopan (TAVNEOS) 10 mg capsule capsule Take 30 mg by mouth 2 (two) times a day. Active traZODone (DESYREL) 50 mg tablet Take 50 mg by mouth at bedtime. Active nitrofurantoin monohydrate (MACROBID) 100 mg capsule Take 1 capsule (100 mg total) by mouth 2 (two) times a day. 10 capsule 09/11/2023 Active Active Problems No known active problems Social History Tobacco Use Types Packs/Day Years Used Date Smoking Tobacco: Every Day Cigarettes Smokeless Tobacco: Never Tobacco Cessation:Ready to Q uit: Not Asked; Counseling Given: Not Answered Alcohol Use Standard Drinks/Week Comments Not Currently 0 (1 standard drink = 0.6 oz pur e alcohol) Rare Nutrition Answer Date Recorded Nutrition: EVOO Fat Source Unknown 01/24 Nutrition: Servings of Fruits/Vegetables per Day Not on file 01/24/2023 Dental Answer Date Recorded Dental: Regular Dentist Unknown 01/24/20 23 Sex and Gender Information Value Date Recorded Sex Assigned at Not on file Gender Identity Not on file Sexual Orientation Not on file Last Filed Vital Signs Vital Sign Reading Time Taken Comments Blood Pressure 109/69 09/11/2023 10:33 AM CDT Pulse 90 09/11/2023 10:33 AM CDT Temperature 37 ??C (98.6 ??F) 09/11/2023 10:33 AM CDT Respiratory Rate 18 09/11/2023 10:33 AM CDT Oxygen Saturation 97% 05/15/2023 4:00 PM CDT Inhaled Oxygen Concentration - - Weight 96.9 kg (213 lb 10 oz) 09/11/2023 10:33 A M CDT Height - - Body Mass Index - - Plan of Treatment Health Maintenance Due Date Last Done Comments Cervical Cancer Screening 1986 HIV Screening 1986 Hepatitis C Screening 1986 Lipid (Cholesterol) Screening 1986 Tobacco Cessation counseling 1986 Meningococcal Vaccine (1 - Risk 2-dose series) 1988 MenB Vaccine (1 of 4 - Increased Risk) 1996 Hepatitis B Vaccines (1 of 3 - 19+ 3-dose series) 2005 DTaP,Tdap,and Td Vaccines (2 - Td or Tdap) 03/24/2021 03/24/2011 COVID-19 Vaccine (2 - Pfizer risk series) 03/21/2023 02/28/2023 Zoster Vaccines (2 of 2) 04/25/2023 02/28/2023 Influenza Vaccine (#1) 2023 3, 07/30/2015, 08/09/2012, Additional history exists Depression Screening (Annual PHQ-2) 11/28/2023 Pneumococcal vaccine (0-64 years) Completed 02/28/2023 HPV Vaccines Aged Out No longer eligi ble based on patient's age to complete this topic Additional Health Concerns Infection Onset Date Last Indicated Protective Environment 09/06/2023 3 Care Teams Stock Analyst Relationship Specialty Start Date End Date Elsewhere, Pcp PCP - General Internal Medicine 01/30/23
--- OUTSIDE RECORDS SUMMARY | 2024-05-17 11:19 | XMS_ITS | Referral Summary ---
Author Organization [facility] Address [address] [place] [address] Care Team Providers Care Panel Cutter Name Role Phone Elsewhere, Pcp Primary Care Provider Unavailabl e Source Comments Patient records contain information from all sites at [facility]. For routine questions regarding patient records, call [phone] during business hours, M-F 8:00 AM - 5:00 PM Central Time. Record requests for emergency care only can be directed to [phone] at any time.[facility] Allergies No known active allergies Medications Medication [...] Date Recorded Dental: Regular Dentist Unknown 01/24/20 Sex and Gender Information Value Date Recorded [...] Mass Index - - Plan of Treatment Not on file Additional Health Concerns Infection Onset Date Last Indicated Protective Environment 09/06/2023 3 Care Teams Panel Cutter Relationship Specialty Start Date End Date Elsewhere, Pcp PCP - General Internal Medicine 01/30/23
== END 2024-05-17 11:23 | disposition home or self-care (01) ==
LOC: ED 11:17
PROVIDERS: Emergency Provider Emergency Medicine Emergency Medical Services
DX: S61.253A Open bite of left middle finger without damage to nail, initial encounter (principal); W54.0XXA Bitten by dog, initial encounter
CPT/HCPCS: 90471; 90715; 99283; 99284